=== PATIENT | male | born 1990 | race Caucasian/White ===

== ENCOUNTER 2021-06-17 19:57 | Emergency (ER) | payer SELFPAY | END 2021-06-17 21:34 | disposition left against medical advice (07) | LOC: ER 20:03 | DX: Z53.21 Procedure and treatment not carried out due to patient leaving prior to being seen by health care provider (principal) ==

== ENCOUNTER 2023-09-04 18:16 | Emergency (ER) | payer MEDICAID, OTHER ==
[~2023-09-04] VITALS: Ht 172.7 cm; Wt 123.0 kg
[2023-09-04 18:27] VITALS: TEMP 99.2; O2SAT 99
[2023-09-04] MEDS ORDERED: KETOROLAC 30MG/ML VIAL IV STA (18:48)
[2023-09-04] MEDS ORDERED: SODIUM CHLORIDE 0.9% 1,000 ML IV ONE (19:00)
[2023-09-04] MEDS ORDERED: METOCLOPRAMIDE HCL 10MG/2ML VIAL IV ONE (19:00)
[2023-09-04 19:36] LABS: BASOPHILS % 0.3 % (0.0-2.0); EOSINOPHILS % 0.4 % (0.0-5.0); HEMATOCRIT. 36.1 % (42.0-52.0); LYMPHOCYTES % 24.8 % (20.0-50.0); MEAN CORPUSCULAR HEMOGLOBIN 28.5 pg (28.0-32.0); MEAN CORPUSCULAR HGB CONC 33.2 g/dL (31.0-37.0); MEAN CORPUSCULAR VOLUME 85.8 fL (80.0-94.0); MEAN PLATELET VOLUME 8.5 fl (7.4-10.4); MONOCYTES % 11.2 % (2.0-8.0); NEUTROPHILS % 63.3 % (40.0-76.0); PLATELET 249 x1000/uL (130-400); RED BLOOD CELL COUNT 4.21 mill/uL (4.7-6.1); RED CELL DISTRIBUTION WIDTH 14.8 % (11.6-14.6); WHITE BLOOD COUNT 7.1 x1000/uL (4.5-11.0)
[2023-09-04 19:42] LABS: CHLORIDE 98 mEq/L (98-107); INDEX HEMOLYSI 1 (1-3); INDEX ICTERIC 1 (1-4); INDEX LIPEMIC 1 (1-3); POTASSIUM 3.7 mEq/L (3.5-5.1); SODIUM 135 mEq/L (136-145)
[2023-09-04 19:49] LABS: PROTHROMBIN TIME 10.6 sec (9.6-11.0)
[2023-09-04 19:53] LABS: ALANINE AMINOTRANSFERASE 31 IU/L (13-61); ALBUMIN 3.7 g/dL (3.4-5.0); ASPARTATE AMINOTRANSFERASE 34 IU/L (15-37); BILIRUBIN TOTAL 0.3 mg/dL (0.1-1.0); CARBON DIOXIDE 29 mEq/L (21-32); CREATININE 0.7 mg/dL (0.6-1.3); GLUCOSE 128 mg/dL (70-105); PROTEIN TOTAL 7.3 g/dL (6.0-8.3); UREA NITROGEN BLOOD 10 mg/dL (7-21)
[2023-09-04 21:03] LABS: ACETAMINOPHEN < 2 ug/mL (10-30); ETHANOL BLOOD < 10 mg/dL (<10)
[2023-09-04] MEDS ORDERED: FAMO-135 MT (21:25)
[2023-09-04] MEDS ORDERED: ACET-2708 MT (21:25)
[2023-09-04] MEDS ORDERED: ACETAMINOPHEN 325MG TABLET PO ONE (21:30)
[2023-09-04] MEDS ORDERED: LORAZEPAM 0.5MG TABLET PO ONE (22:00)
[2023-09-04 22:36] VITALS: BP 149/59; PULSE 89; RESP 14
== END 2023-09-04 22:37 | disposition home or self-care (01) ==
LOC: ER 18:16
DX: R51.9 Headache, unspecified (principal); R10.84 Generalized abdominal pain; F20.9 Schizophrenia, unspecified; I10 Essential (primary) hypertension
CPT/HCPCS: 80053; 80307; 80329; 80320; 83690; 85025; 85610; 36415; 70450; 71250; 74176; 96361; 96374; 96375; 99285; J1885; J2765; J7030; Z7610 ×2; G0480

== ENCOUNTER 2023-10-04 01:04 | Emergency (ER) | payer OTHER ==
[~2023-10-04] VITALS: Ht 165.1 cm; Wt 70.0 kg
[~2023-10-04 01:04] MED LIST: ACET-2708 MT; FAMO-135 MT
[2023-10-04 01:06] VITALS: BP 126/67; PULSE 102; RESP 20; TEMP 97.2; O2SAT 99
[2023-10-04 03:04] LABS: DIFFERENTIAL COMMENT 1; HEMATOCRIT. 43.3 % (42.0-52.0); HEMOGLOBIN. 14.4 g/dL (14.0-18.0); MEAN CORPUSCULAR HEMOGLOBIN 29.2 pg (28.0-32.0); MEAN CORPUSCULAR HGB CONC 33.3 g/dL (31.0-37.0); MEAN CORPUSCULAR VOLUME 87.7 fL (80.0-94.0); MEAN PLATELET VOLUME 7.8 fl (7.4-10.4); PLATELET 310 x1000/uL (130-400); RED BLOOD CELL COUNT 4.93 mill/uL (4.7-6.1); RED CELL DISTRIBUTION WIDTH 14.7 % (11.6-14.6); WHITE BLOOD COUNT 9.3 x1000/uL (4.5-11.0)
[2023-10-04 03:42] LABS: ALANINE AMINOTRANSFERASE 48 IU/L (10-49); ALBUMIN 4.7 g/dL (3.2-4.8); ASPARTATE AMINOTRANSFERASE 57 IU/L (<34); BILIRUBIN TOTAL 0.9 mg/dL (0.1-1.0); CARBON DIOXIDE 26 mEq/L (21-32); CHLORIDE 95 mEq/L (98-107); CREATINE KINASE 1851 IU/L (46-171); CREATININE 0.8 mg/dL (0.6-1.3); GLUCOSE 88 mg/dL (70-105); POTASSIUM 4.2 mEq/L (3.5-5.1); PROTEIN TOTAL 7.4 g/dL (6.0-8.3); SODIUM 131 mEq/L (136-145); UREA NITROGEN BLOOD 6 mg/dL (9-23)
[2023-10-04] MEDS ORDERED: SODIUM CHLORIDE 0.9% 1000ML BAG (SEPSIS BOLUS) IV NR (04:15)
[2023-10-04 08:29] LABS: PLATELET ESTIMATE NORMAL
== END 2023-10-04 06:20 | disposition home or self-care (01) ==
LOC: ER 01:04
DX: F11.90 Opioid use, unspecified, uncomplicated (principal); M79.10 Myalgia, unspecified site
CPT/HCPCS: 36415; 80053; 82550; 85025; 99291